=== PATIENT | female | born 1965 | race Caucasian/White ===

== ENCOUNTER → 2025-03-03 07:51 | Outpatient (REF) | payer OTHER, SELFPAY | LOC: RCS 07:51 | PROVIDERS: ATTENDING PHYSICIAN Internal Medicine Cardiovascular Disease; FAMILY PHYSICIAN Physician Assistant | DX: R06.02 Shortness of breath (principal); E66.01 Morbid (severe) obesity due to excess calories; Z82.49 Family history of ischemic heart disease and other diseases of the circulatory system; E78.00 Pure hypercholesterolemia, unspecified | CPT/HCPCS: 93306 ==

== ENCOUNTER → 2025-03-05 07:43 | Outpatient (REF) | payer OTHER, SELFPAY | LOC: RCS 07:43 | PROVIDERS: ATTENDING PHYSICIAN Internal Medicine Cardiovascular Disease; FAMILY PHYSICIAN Physician Assistant | DX: R06.02 Shortness of breath (principal); E66.01 Morbid (severe) obesity due to excess calories; Z82.49 Family history of ischemic heart disease and other diseases of the circulatory system; E78.00 Pure hypercholesterolemia, unspecified | CPT/HCPCS: 93017 ==